=== PATIENT | male | born 1965 | race Caucasian/White ===

== ENCOUNTER → 2019-11-10 | Outpatient (CLI) | payer BC ==
[~2019-11-10] MED LIST: ASPIRIN81 M1 PO; CIPRO500 MG PO; CLARITIN10 MG PO; DILTIAZEM240 M1 PO; HYDR12.5C PO; IMDUR SA30 MG PO; IRBESARTAN150 MG PO; MEDROL DOSEPAK4 MG PO; NEXIUM20 MG PO; NITROSTAT0.4 MG SL; SIMVASTATIN20 MG PO; VICODIN 5/500 505 MG PO; XANAX0.5 MG PO; XANAX1 MG PO
== END | disposition home or self-care (01) ==
LOC: COVID19 00:31
DX: Z01.818 Encounter for other preprocedural examination (principal); Z11.59 Encounter for screening for other viral diseases

== ENCOUNTER → 2019-11-16 | Day surgery (SDC) | payer BC ==
[~2019-11-16] VITALS: Ht 177.8 cm; Wt 108.9 kg
[2019-11-16 07:01] VITALS: BP 152/96
[2019-11-16 07:56] VITALS: BP 117/76
[2019-11-16 08:11] VITALS: BP 125/83
[2019-11-16 08:26] VITALS: BP 122/85
== END | disposition home or self-care (01) ==
LOC: SDC 11-13 11:00
DX: Z12.11 Encounter for screening for malignant neoplasm of colon (principal); I25.2 Old myocardial infarction; Z87.891 Personal history of nicotine dependence; Z79.899 Other long term (current) drug therapy; Z98.890 Other specified postprocedural states
CPT/HCPCS: 00812; G0121